=== PATIENT | female | born 1955 | race Caucasian/White ===

== ENCOUNTER → 2024-10-23 10:41 | Outpatient (CLI) | payer MEDICARE, SELFPAY ==
--- NOTE | 2024-10-23 10:52 | DI.US.S_ITS ---
PROCEDURE: US PELVIC COMPLETE INDICATIONS: ACUTE LOWER ABD PAIN W/BOWEL CHANGES TECHNIQUE: Real-time scanning was performed of the pelvic organs, with image documentation. Additional endovaginal scanning was necessary due to incomplete visualization of the adnexal and endometrial structures by transabdominal scanning. COMPARISON: None. FINDINGS: Uterus: Anteverted positioning. Endometrium measures 2 mm, within normal limits. Right anterior intramural fibroid measures 1.6 x 1.4 cm. scar is present. Ovaries: Nonenlarged bilaterally measuring 2 cc. Other: No pathologic free abdominal or pelvic fluid. IMPRESSION: No acute or significant sonographic abnormality in the pelvis. Intramural right anterior uterine fibroid. Dictated by: Serjio Blackmon M.D. on 10/23/2024 at 15:20 Approved by: Serjio Blackmon M.D. on 10/23/2024 at 15:22
--- NOTE | 2024-10-23 10:52 | DI.US.S_ITS ---
PROCEDURE: US ABDOMEN COMPLETE INDICATIONS: ACUTE LOWER ABD PAIN W/BOWEL CHANGES TECHNIQUE: Real-time scanning was performed of the abdominal and retroperitoneal organs, with image documentation. COMPARISON: None. FINDINGS: Liver: Liver is normal in size and homogeneous in echotexture. Gallbladder: Normal. Biliary ducts: Intrahepatic bile ducts are non-dilated. Extrahepatic bile duct caliber measures 4.2 mm. Normal is 6-7 mm or less in diameter, or 10 mm or less post-cholecystectomy. Pancreas: Visualized portions of the pancreas are sonographically normal. Spleen: Spleen is normal in size and homogeneous in echotexture. Kidneys: Kidneys are slightly small with normal echogenicity. Right kidney measures 9.4 cm long; left kidney measures 9.2 cm long. No hydronephrosis or nephrolithiasis. No solid masses. Malrotated right kidney. Right-sided renal sinus cyst and left-sided extrarenal pelvis. Aorta: Visualized aorta is normal in caliber at less than 3 cm. Iliacs: Proximal common iliac arteries are normal in caliber at less than 2.5 cm. IVC: Intrahepatic inferior vena cava is patent. Miscellaneous: No free abdominal fluid. IMPRESSION: No acute abnormality to explain the patient's abdominal pain. Malrotation of the right kidney, a congenital variant. Dictated by: Charanjit Kwong M.D. on 10/23/2024 at 16:24 Approved by: Charanjit Kwong M.D. on 10/23/2024 at 16:25
== END ==
LOC: US 10:51
PROVIDERS: Family Provider Nurse Practitioner; PCP Nurse Practitioner; Referring Provider Physician Assistant; Visit Provider Physician Assistant
DX: R10.30 Lower abdominal pain, unspecified (principal); D25.1 Intramural leiomyoma of uterus
CPT/HCPCS: 76700; 76830; 76856